=== PATIENT | male | born 1965 | race American Indian/Alaskan Native ===

== ENCOUNTER 2019-01-07 18:21 | Emergency (ER) | payer OTHER ==
[2019-01-07 18:34] VITALS: BP 134/78
[2019-01-07] MEDS ORDERED: ALUM-MAG HYDROX-SIMETH 200-200-20MG/5ML PO ONE (18:35)
[2019-01-07] MEDS ORDERED: LIDOCAINE VISCOUS 2% PO ONE (18:35)
[2019-01-07] MEDS ORDERED: PEPCID PO ONE (18:35)
--- NOTE | 2019-01-07 18:35 | Emergency Department Report ---
Chief Complaint: Chest Pain Stated Complaint: CHEST PAIN/BACK PAIN Time Seen by Provider: 01/07/19 18:33 - HPI History of Present Illness: ANT CP RAD TO BACK NO NAUSEA NO SWEATING PAIN SHARP DROVE TO ER HTN HPLD OBESE GERD STOPPED SMOKING FAM HX CAD PCP [facility] STRESS TEST 1 Y AGO OK MSE COMPLETED MSE screening note: Focused history and physical exam performed. Due to findings the following was ordered: ED Disposition for MSE Condition: Stable
[2019-01-07 19:04] LABS: Hematocrit 41.7 % (35.5-45.6); Hemoglobin 14.2 gm/dl (11.8-15.2); Mean Corpuscular HGB Conc 34 % (32-34); Mean Corpuscular Volume 92 fl (84-94); Platelet Count 244 K/mm3 (140-440); Red Blood Count 4.53 M/mm3 (3.65-5.03); Red Cell Distribution Width 13.3 % (13.2-15.2)
[2019-01-07 19:21] LABS: Alanine Aminotransferase 32 units/L (7-56); Albumin 4.4 g/dL (3.9-5); BUN/Creatinine Ratio 12; Blood Urea Nitrogen 11 mg/dL (9-20); Calcium 9.7 mg/dL (8.4-10.2); Hemolysis Index 5
--- NOTE | 2019-01-07 20:14 | XRay Report ---
PROCEDURE: XR CHEST ROUTINE 2V TECHNIQUE: PA and lateral chest HISTORY: CHEST PAIN COMPARISONS: No priors FINDINGS: Cardiac silhouette is not enlarged. There is no evidence of airspace consolidation or pleural effusions. The pulmonary vasculature is within normal limits. IMPRESSION: No radiographic evidence of acute cardiopulmonary disease. . This document is electronically signed by Filemon Toledo MD., January 07 2019 08:12:25 PM ET
--- NOTE | 2019-01-07 21:19 | Emergency Department Report ---
ED Chest Pain HPI - General Chief Complaint: Chest Pain Stated Complaint: CHEST PAIN/BACK PAIN Time Seen by Provider: 01/07/19 18:33 Source: patient Mode of arrival: Ambulatory Limitations: No Limitations - History of Present Illness Initial Comments: 53-year-old -[place] male with a past medical history of hypertension and hypercholesterolemia comes to the emergency room complaining of intermittent midsternal chest pain onset Sunday. Patient reports pains increased with deep breathing and movement. Patient reports that her radiates to the back between his shoulder blades. Patient denies any alleviating factors. Patient states that it feels like he has air trapped in his chest and that if he can belch it would help. Patient reports is tried [id number] antacid medication and Tums. Patient reports he had a stress test a couple years ago. Primary care provider is Dr. Shay porter. He is currently taken hypertensive m edication as well as recently started phentermine 37.5 mg for weight loss. MD Complaint: chest pain -: days(s) (2) Onset: during rest Pain Location: substernal Pain Radiation: back Severity scale (0 -10): 7 Improves With: nothing Worsens With: inspiration re: denies: nausea, vomting, diaphoresis, dyspnea Other Symptoms: burping - Related Data Home Medications Medication Instructions Recorded Confirmed Last Taken Valsartan [Diovan] 40 mg PO DAILY 01/16/16 01/16/16 01/15/16 Allergies Allergy/AdvReac Type Severity Reaction Status Date / Time ampicillin Allergy Rash Verified 01/07/19 18:48 Heart Score - HEART Score History: Moderately suspicious EKG: Normal Age: < 45 Risk factors: > 3 risk factors or hx of atherosclerotic disease Troponin: 1-3x normal limit HEART Score: 4 ED Review of Systems ROS: Stated complaint: CHEST PAIN/BACK PAIN Other details as noted in HPI Comment: All other systems reviewed and negative Cardiovascular: chest pain ED Past Medical Hx - Past Medical History Previous Medical History?: Yes Hx Hypertension: Yes Additional medical history: high cholesterol - Surgical History Past Surgical History?: Yes Additional Surgical History: Right shoulder, Right rotator cuff, Left leg, Left elbow, Gastric bypass - Social History Smoking Status: Former Smoker - Medications Home Medications: Home Medications Medication Instructions Recorded Confirmed Last Taken Type Valsartan [Diovan] 40 mg PO DAILY 01/16/16 01/16/1616 History ED Physical Exam - General Limitations: No Limitations General appearance: alert, in no apparent distress - Head Head exam: Present: atraumatic, normocephalic - Eye Eye exam: Present: normal appearance - ENT ENT exam: Present: mucous membranes moist - Neck Neck exam: Present: normal inspection - Respiratory Respiratory exam: Present: normal lung sounds bilaterally, chest wall tenderness. Absent: respiratory distress - Cardiovascular Cardiovascular Exam: Present: regular rate, normal rhythm. Absent: systolic murmur, diastolic murmur, rubs, gallop - GI/Abdominal GI/Abdominal exam: Present: soft, normal bowel sounds - Rectal Rectal exam: Present: deferred - Extremities Exam Extremities exam: Present: normal inspection - Back Exam Back exam: Present: normal inspection, full ROM - Neurological Exam Neurological exam: Present: alert, oriented X3 - Psychiatric Psychiatric exam: Present: normal affect, normal mood - Skin Skin exam: Present: warm, dry, intact, normal color. Absent: rash ED Course Vital Signs 01/07/19 18:27 Temperature 98.1 F Pulse Rate 87 Respiratory 20 Rate Blood Pressure 134/78 O2 Sat by Pulse 98 Oximetry RONALD score - Ronald Score Age > 65: (0) No Aspirin use within the Past 7 Days: (0) No 3 or more CAD Risk Factors: (1) Yes 2 or more Angina events in past 24 hrs: (1) Yes Known CAD with more than 50% Stenosis: (0) No Elevated Cardiac Markers: (0) No ST Deviation Greater than 0.5mm: (0) No RONALD Score: 2 ED Medical Decision Making - Lab Data Result diagrams: 01/07/19 18:41 01/07/19 18:41 Labs 01/07/19 01/07/19 18:41 18:41 WBC 4.3 L RBC 4.53 Hgb 14.2 Hct 41.7 MCV 92 MCH 31 MCHC 34 RDW 13.3 Plt Count 244 Sodium 140 Potassium 4.2 Chloride 100.8 Carbon Dioxide 27 Anion Gap 16 BUN 11 Creatinine 0.9 Estimated GFR > 60 BUN/Creatinine Ratio 12 Glucose 128 H Calcium 9.7 Total Bilirubin 0.40 AST 28 ALT 32 Alkaline Phosphatase 69 Troponin T < 0.010 Total Protein 7.1 Albumin 4.4 Albumin/Globulin Ratio 1.6 - EKG Data EKG shows normal: sinus rhythm Rate: normal - Radiology Data Radiology results: report reviewed Patient: SALVADOR MOON MR#: [id number] : 1965 Acct:[id number] Age/Sex: 53 / M ADM Date: 01/07/19 Loc: ED Attending Dr: Ordering Physician: VIN SILVA Date of Service: 01/07/19 Procedure(s): XR chest routine 2V Accession Number(s): [id number] cc: VIN SILVA Fluoro Time In Minutes: PROCEDURE: XR CHEST ROUTINE 2V TECHNIQUE: PA and lateral chest HISTORY: CHEST PAIN COMPARISONS: No priors FINDINGS: Cardiac silhouette is not enlarged. There is no evidence of airspace consolidation or pleural effusions. The pulmonary vasculature is within normal limits. IMPRESSION: No radiographic evidence of acute cardiopulmonary disease. . This document is electronically signed by Filemon Toledo MD., January 07 2019 08:12:25 PM ET Transcribed By: JLA Dictated By: FILEMON TOLEDO MD Electronically Authenticated By: FILEMON TOLEDO MD Signed Date/Time: 01/07/192013 DD/ 15 TD/TT: 01/07/191915 - Medical Decision Making Patient has been evaluated by this provider in [facility]. Patient has a hard score of 4 secondary to a history of high cholesterol and hypertension obesity. Patient still complains of chest pain. Patient does have a primary care provider Dr. Shay Whitley. Critical Care Time: Yes Critical care attestation.: If time is entered above; I have spent that time in minutes in the direct care of this critically ill patient, excluding procedure time. ED Disposition Clinical Impression: Chest pain Disposition: DC-07 LEFT AGAINST MED ADVICE Is pt being admited?: No Does the pt Need Aspirin: No Condition: Stable Instructions: Chest Pain (ED) Referrals: SHAY WHITLEY MD [Primary Care Provider] - 3-5 Days Forms: AMA Form
== END 2019-01-07 23:51 | disposition left against medical advice (07) ==
LOC: ED 18:21
DX: R07.89 Other chest pain (principal); I10 Essential (primary) hypertension; E78.00 Pure hypercholesterolemia, unspecified; Z87.891 Personal history of nicotine dependence; Z88.1 Allergy status to other antibiotic agents
CPT/HCPCS: 36415; 71046; 80053; 84484; 85027; 93005; 93010